=== PATIENT | male | born 1980 | race Caucasian/White ===

== ENCOUNTER 2023-05-19 14:38 | Outpatient (CLI) | payer BC, SELFPAY | END 2023-05-19 14:39 | disposition home or self-care (01) | PROVIDERS: PCP Family Medicine; Visit Provider Family Medicine | DX: Z00.00 Encounter for general adult medical examination without abnormal findings (principal); Z76.89 Persons encountering health services in other specified circumstances; Z82.49 Family history of ischemic heart disease and other diseases of the circulatory system | CPT/HCPCS: 80053; 80061 ==